=== PATIENT | female | born 1985 | race Caucasian/White ===

== ENCOUNTER 2017-02-19 10:50 | Emergency (ER) | payer BC ==
[~2017-02-19] VITALS: Ht 157.5 cm; Wt 73.9 kg
[2017-02-19 10:57] VITALS: Ht 157.5 cm; Wt 73.9 kg
[2017-02-19 13:03] VITALS: BP 130/75
== END 2017-02-19 13:03 | disposition home or self-care (01) ==
LOC: ED 10:50
DX: S60.222A Contusion of left hand, initial encounter (principal); S60.221A Contusion of right hand, initial encounter; W22.01XA Walked into wall, initial encounter; Y93.89 Activity, other specified; Y92.89 Other specified places as the place of occurrence of the external cause; Y99.8 Other external cause status
CPT/HCPCS: Q0092